=== PATIENT | male | born 1995 | race Caucasian/White ===

== ENCOUNTER 2019-02-07 20:25 | Emergency (ER) | payer MEDICAID ==
[2019-02-07 20:45] VITALS: BP 176/96
--- NOTE | 2019-02-07 21:25 | EDM.PDOC ---
ED HPI GENERAL MEDICAL PROBLEM - General Chief Complaint: ENT Problem Stated Complaint: SOB/SORE THROAT Time Seen by Provider: 02/07/19 20:34 Source of Information: Reports: Patient, Family, RN Notes Reviewed History Limitations: Reports: No Limitations - History of Present Illness INITIAL COMMENTS - FREE TEXT/NARRATIVE: 23-year-old gentleman presents to the emergency department today with multiple complaints states though for the last 5 days complains of fever and sore throat sinus pressure ear pain and a cough - Related Data Allergies Allergy/AdvReac Type Severity Reaction Status Date / Time No Known Allergies Allergy Verified 03/15/15 11:51 Home Meds: Home Meds Budesonide [Pulmicort] 2 puff PO Q4HR PRN 03/15/15 [History] Albuterol Sulfate [Albuterol Sulfate Hfa] 02/07/19 [History] Atenolol 25 mg PO DAILY 02/07/19 [History] Fexofenadine HCl [Lisy Allergy] 60 mg PO DAILY 02/07/19 [History] Venlafaxine HCl [Venlafaxine ER] 150 mg PO DAILY 02/07/19 [History] Past Medical History Cardiovascular History: Reports: Hypertension Respiratory History: Reports: Asthma Psychiatric History: Reports: Autism, Depression Endocrine/Metabolic History: Reports: Obesity/BMI 30+ Social & Family History - Tobacco Use Smoking Status *Q: Never Smoker - Caffeine Use Caffeine Use: Reports: Coffee, Energy Drinks, Soda - Recreational Drug Use Recreational Drug Use: No ED ROS ENT - Review of Systems Review Of Systems: See Below Constitutional: Reports: Fever (Solu-Medrol), Chills (IV) HEENT: Reports: Ear Pain, Sinus Problem, Throat Pain, Throat Swelling Respiratory: Reports: Cough Cardiovascular: Reports: No Symptoms GI/Abdominal: Reports: No Symptoms : Reports: No Symptoms ED EXAM, ENT - Physical Exam Exam: See Below Exam Limited By: No Limitations General Appearance: Alert, WD/WN, No Apparent Distress Ears: Normal External Exam, TM Erythema, Other (TMs scarring bilaterally) Nose: Normal Inspection, Normal Mucousa, No Blood Mouth/Throat: Normal Inspection, Normal Gums, Normal Lips, Pharyngeal Erythema, Throat Pain Head: Atraumatic, Normocephalic Neck: Normal Inspection, Supple, Non-Tender, Full Range of Motion Respiratory/Chest: No Respiratory Distress, Lungs Clear, Normal Breath Sounds, No Accessory Muscle Use, Chest Non-Tender Cardiovascular: Regular Rate, Rhythm, No Murmur Course - Vital Signs Last Recorded V/S: Last Vital Signs Temp 98.1 F 02/07/19 20:47 Pulse 122 H 02/07/19 20:47 Resp 18 02/07/19 20:47 BP 176/96 H 02/07/19 20:47 Pulse Ox 97 02/07/19 20:47 - Orders/Labs/Meds Orders: Active Orders 24 hr Category Date Time Status CULTURE STREP A CONFIRMATION [RM] Stat Lab 02/07/19 20:42 Results STREP SCRN A RAPID W CULT CONF [RM] Stat Lab 02/07/19 20:42 Results Departure - Departure Time of Disposition: 21:24 Disposition: Home, Self-Care 01 Condition: Fair Clinical Impression: Sinusitis Qualifiers: Sinusitis location: maxillary Chronicity: acute Recurrence: non-recurrent Qualified Code(s): J01.00 - Acute maxillary sinusitis, unspecified - Discharge Information Referrals: Nicole Reid PA [Primary Care Provider] - Additional Instructions: Take full course of antibiotics, use Tylenol or Motrin as needed for fever control, Please followup with your primary care provider in 3-5 days if not better, please call return to the emergency department with worsening of symptoms. - My Orders Last 24 Hours: My Active Orders 02/07/19 20:42 CULTURE STREP A CONFIRMATION [RM] Stat STREP SCRN A RAPID W CULT CONF [RM] Stat - Assessment/Plan Last 24 Hours: My Active Orders 02/07/19 20:42 CULTURE STREP A CONFIRMATION [RM] Stat STREP SCRN A RAPID W CULT CONF [RM] Stat Plan: Assessment Acuity = acute Site and laterality = sinusitis Etiology = probable bacterial cause Manifestations = fever Location of injury = Home Lab values = none Plan Elected to empirically treat Augmentin 875 twice a day 10 days follow-up primary care in 3-5 days if no improvement This note was dictated using [employer] voice recognition software please call with any questions on syntax or grammar.
== END 2019-02-07 21:38 | disposition home or self-care (01) ==
LOC: JP.ED 20:25
DX: J01.00 Acute maxillary sinusitis, unspecified (principal); J45.909 Unspecified asthma, uncomplicated; I10 Essential (primary) hypertension; Z79.899 Other long term (current) drug therapy
CPT/HCPCS: 87081; 87430; 99283

== ENCOUNTER 2019-06-05 16:45 | Emergency (ER) | payer MEDICAID ==
[2019-06-05 17:04] VITALS: BP 127/70; PULSE 72
--- NOTE | 2019-06-05 17:51 | EDM.PDOCBH ---
ED HPI GENERAL MEDICAL PROBLEM - General Chief Complaint: Behavioral/Psych Stated Complaint: EVAL Time Seen by Provider: 06/05/19 17:42 Source of Information: Reports: Patient History Limitations: Reports: Other (Autism) - History of Present Illness Onset: Gradual Duration: Week(s): Severity: Mild Improves with: Reports: None Worsens with: Reports: None - Related Data Allergies Allergy/AdvReac Type Severity Reaction Status Date / Time No Known Allergies Allergy Verified 06/05/19 17:22 Home Meds: Home Meds Budesonide [Pulmicort] 2 puff PO Q4HR PRN 03/15/15 [History] Albuterol Sulfate [Albuterol Sulfate Hfa] 1 puff IH ASDIRECTED 02/07/19 [History ] Atenolol 25 mg PO DAILY 02/07/19 [History] Fexofenadine HCl [Lisy Allergy] 60 mg PO DAILY 02/07/19 [History] Venlafaxine HCl [Venlafaxine ER] 300 mg PO DAILY 02/07/19 [History] traZODone 100 mg PO BEDTIME 06/05/19 [History] Past Medical History Cardiovascular History: Reports: Hypertension Respiratory History: Reports: Asthma Psychiatric History: Reports: Anxiety, Autism, Depression Endocrine/Metabolic History: Reports: Obesity/BMI 30+ Dermatologic History: Reports: Psoriasis - Past Surgical History Head Surgeries/Procedures: Reports: None Cardiovascular Surgical History: Reports: None Respiratory Surgical History: Reports: None Endocrine Surgical History: Reports: None Dermatological Surgical History: Reports: None Social & Family History - Tobacco Use Smoking Status *Q: Never Smoker Second Hand Smoke Exposure: No - Caffeine Use Caffeine Use: Reports: Coffee, Energy Drinks, Soda, Tea - Recreational Drug Use Recreational Drug Use: No ED ROS GENERAL - Review of Systems Review Of Systems: Unable To Obtain Constitutional: Reports: Malaise, Fatigue, Decreased Appetite Respiratory: Reports: No Symptoms Cardiovascular: Reports: No Symptoms Psychiatric: Reports: Depression. Denies: Hallucinations, Homicidal Ideation, Mood Lability, Suicidal Ideation ED EXAM, BEHAVIORAL HEALTH - Physical Exam Exam: See Below Exam Limited By: No Limitations General Appearance: No Apparent Distress Respiratory/Chest: No Respiratory Distress Neurological: Other (One or two word answers to questions. Spouse answers most questions for him.) COURSE, BEHAVIORAL HEALTH COMP - Course Vital Signs: Last Vital Signs Temp 36.1 C 06/05/19 17:25 Pulse 72 06/05/19 17:25 Resp 16 06/05/19 17:25 BP 127/70 06/05/19 17:25 Pulse Ox 96 06/05/19 17:25 Departure - Departure Time of Disposition: 18:08 Disposition: Home, Self-Care 01 Condition: Good Clinical Impression: Depression, Insomnia - Discharge Information *PRESCRIPTION DRUG MONITORING PROGRAM REVIEWED*: Not Applicable *COPY OF PRESCRIPTION DRUG MONITORING REPORT IN PATIENT MIMI: Not Applicable Referrals: Nicole Reid PA [Primary Care Provider] - Forms: ED Department Discharge Additional Instructions: Change the timing of your venlafaxine so that you're taking it at the start of your day instead of at bedtime. Increase trazodone to 2 tablets every evening. Pick a regular time that he go to bed and a regular time he wakeup regardless of how alert or tired you feel. Once she go to bed, if you can't fall asleep within 30 or 45 minutes, get up and do activities you do not like to do. I do not recommend anel of any type if you awaken after trying to fall asleep. Avoid caffeine of any kind with thin 3 hours of going to sleep. During daytime hours, I recommend walking for 20 minutes twice a day for the next week and then increasing to 40 minutes twice a day. Keep her scheduled follow-up appointment on June 18. If you feel worse in any way return here.
== END 2019-06-05 18:26 | disposition home or self-care (01) ==
LOC: JP.ED 16:45
DX: F32.9 Major depressive disorder, single episode, unspecified (principal); F51.05 Insomnia due to other mental disorder; I10 Essential (primary) hypertension; J45.909 Unspecified asthma, uncomplicated; E66.9 Obesity, unspecified; F41.9 Anxiety disorder, unspecified; Z79.899 Other long term (current) drug therapy
CPT/HCPCS: 99283